=== PATIENT | female | born 1975 | race Caucasian/White ===

== ENCOUNTER → 2016-11-23 | Outpatient (CLI) | payer BC ==
[2016-11-23 11:41] LABS: Basophils % (A) 1 %; CH 31.8; CHCM 33.6; Eosinophils # (A) 0.1 k/uL (0-0.7); Eosinophils % (A) 1 %; HCT 43.7 % (34.0-46.0); HDW 2.57; HGB 14.2 gm/dL (11.4-16.0); Luc # (Auto) 0.13; Luc % (Auto) 2; Lymphocytes # (A) 1.6 k/uL (1.0-4.8); Lymphocytes % (A) 25 %; MCH 30.9 pg (25.0-35.0); MCHC 32.4 g/dL (31.0-37.0); MCV 95.2 fL (80.0-100.0); Monocytes # (A) 0.4 k/uL (0-1.0); Monocytes % (A) 7 %; Neutrophils # (A) 4.3 k/uL (1.3-7.7); Neutrophils % (A) 65 %; RBC 4.59 m/uL (3.80-5.40); WBC 6.6 k/uL (3.8-10.6); WBC (Perox) 6.23
[2016-11-23 11:47] LABS: Anion Gap 8 mmol/L; Blood Urea Nitrogen 11 mg/dL (7-17); Carbon Dioxide 25 mmol/L (22-30); Chloride 106 mmol/L (98-107); Glucose 89 mg/dL (74-99); Non-African American GFR(MDRD) >60 (>60 ml/min/1.73 sqM); Potassium 4.5 mmol/L (3.5-5.1); Sodium 139 mmol/L (137-145)
== END | disposition home or self-care (01) ==
LOC: LABPAT 11:07
PROVIDERS: ATTEND Obstetrics & Gynecology
DX: Z01.812 Encounter for preprocedural laboratory examination (principal); N94.6 Dysmenorrhea, unspecified; N92.1 Excessive and frequent menstruation with irregular cycle
CPT/HCPCS: 36415; 80051; 82565; 82947; 84520; 85025; 86850; 86900; 86901; 87077; 87086; 87186

== ENCOUNTER 2016-12-02 08:18 | Observation (INO) | payer BC ==
[2016-11-27 08:55] VITALS: BMI 27.4
--- NOTE | 2016-11-28 18:01 | HP ---
HISTORY AND PHYSICAL The patient is a 41-year-old 0, para 0, who presented to the office recently having undergone ablation and tubal ligation approximately 3 years ago. She has continued to have at least initially some occasional bleeding which has now become light bleeding lasting for at least 2 weeks of the time and is extraordinarily unpredictable in nature. This presents a significant lifestyle interruption and presents also with significant pain. She is interested in definitive therapy with hysterectomy. Previous examination and examination under anesthetic make the patient a candidate only for a Da Chhaya approach rather than vaginal hysterectomy. PAST MEDICAL HISTORY: Significant for asthma, history of endometriosis, infertility, menorrhagia, and vitiligo. SURGICAL HISTORY: Significant for bilateral breast augmentation surgery. She additionally had hysteroscopy with D and C. She has had laparoscopy with chromopertubation and then she additionally most recently in 2013 underwent hysteroscopy with NovaSure endometrial ablation as well as tubal ligation. Lastly, she has also had liposuction. She denies any anesthetic concerns. OBSTETRICAL HISTORY: 0, para 0, having suffered significant issues with infertility during her reproductive years. Method of contraception currently is tubal ligation. GYNECOLOGIC HISTORY: Unremarkable with the exception of as noted in the history of present illness. There is no history of any infections to include STDs. FAMILY HISTORY: Noncontributory. SOCIAL HISTORY: The patient is and is a nonsmoker but does have remote history of smoking. She reports occasional alcohol and no other significant social concerns. CURRENT MEDICATIONS: Albuterol metered-dose inhaler as needed, Lexapro daily, multivitamin daily, omeprazole daily, and ibuprofen p.r.n. ALLERGIES: PENICILLIN causes nausea. REVIEW OF SYSTEMS: Review of systems as confined to history of present illness. PHYSICAL EXAMINATION: In general, this is a well-developed, well-nourished white female in no acute distress. Her heart has a regular rhythm and rate without murmur. Her lungs are clear to auscultation bilaterally in all pierre. Her abdomen is nondistended, has normoactive bowel sounds, soft, nontender, and without any palpable masses, hepatosplenomegaly, or hernias. Her extremities are without any cyanosis, clubbing, or edema and are nontender to palpation bilaterally. Pelvic examination demonstrates normal external genitalia and BUS with normal vaginal mucosa and cervix. There is no cervical motion tenderness. Uterus is approximately 4-5 weeks in size, mid plane, mobile, nontender, normal in shape. The adnexa are normal and nontender without mass bilaterally. ASSESSMENT AND PLAN: Menometrorrhagia and dysmenorrhea: Her symptoms are significantly disruptive of her lifestyle and work schedule, and she has failed endometrial ablation. She has requested definitive therapy with hysterectomy and her examinations have demonstrated she is a good candidate for Da Chhaya approach. She therefore has been scheduled for Da Chhaya robotically assisted laparoscopic hysterectomy with bilateral salpingectomy and diagnostic cystoscopy. The risks and complications of the procedure have been thoroughly discussed including the risk for bleeding, bleeding requiring transfusion, infection, and injury to local structures. This specifically includes risks to the bowel, bladder, and ureters. We then went on to discuss injuries that are unique to Da Chhaya surgery to include specifically thermal injury and vaginal cuff dehiscence. She has understood all this and understood and agreed to proceed. We are scheduled for the above procedures on the morning of December 02, 2016 for the diagnoses as outlined above. MMODL / IJN: [id number] /
[~2016-12-02 08:18] MED LIST: DEXAMETHASONE SOD PHOSPHATE 10 MG/ML 1 ML VIAL IV ONE; HYDROmorphone 0.5 MG/0.5 ML SYRINGE IVP PRN; MIDAZOLAM 2 MG/2 ML VIAL IV PRN; ONDANSETRON 4 MG/2 ML VIAL IVP ONE; SCOPOLAMINE 1.5MG/72HR PATCH TRANSDERM ONE; ceFAZolin 2 GM in SODIUM CHLORIDE 0.9% 100 ML IVPB ONE
[2016-12-02] MEDS: LACTATED RINGERS 1,000 ML IV SCH ×3 (09:11→22:46)
[2016-12-02] MEDS ORDERED: LIDOCAINE 1% 20 ML VIAL (10MG/ML) FOR IV START INTRADERMA ONE (09:13)
[2016-12-02] MEDS ORDERED: Acetaminophen-Codeine 300-30mg TAB PO PRN ×2 (09:45)
[2016-12-02] MEDS ORDERED: METOCLOPRAMIDE 5 MG/ML 2 ML VIAL IVP PRN (09:45)
[2016-12-02] MEDS ORDERED: diphenhydrAMINE 50 MG/ML 1 ML VIAL IVP PRN (09:45)
[2016-12-02] MEDS ORDERED: SIMETHICONE 80 MG CHEWABLE PO PRN (09:45)
[2016-12-02] MEDS ORDERED: PROPOFOL 10 MG/ML 20 ML VIAL IV ONE (09:47)
[2016-12-02] MEDS ORDERED: NEOSTIGMINE 1 MG/ML 10 ML VIAL ONE (09:47)
[2016-12-02] MEDS ORDERED: ROCURONIUM BROMIDE 10 MG/ML 10 ML VIAL IV ONE (09:47)
[2016-12-02] MEDS ORDERED: LIDOCAINE 1% INJ 10MG/ML (20 ML MDV) ONE (09:47)
[2016-12-02] MEDS ORDERED: MIDAZOLAM 2 MG/2 ML VIAL ONE (09:47)
[2016-12-02] MEDS ORDERED: KETOROLAC 30 MG/ML 1 ML VIAL ONE (09:47)
[2016-12-02] MEDS ORDERED: fentaNYL (PF) 50 MCG/ML 2 ML AMP ONE (09:47)
[2016-12-02] MEDS ORDERED: GLYCOPYRROLATE 0.2 MG/ML 2 ML VIAL ONE (09:47)
[2016-12-02] MEDS ORDERED: ACETAMINOPHEN IV (For NPO) 1,000 MG/100 ML VIAL ONE (09:47)
[2016-12-02] MEDS ORDERED: BUPIVACAINE (PF) 0.5% 30 ML VIAL SQ ONE (10:14)
--- NOTE | 2016-12-02 11:37 | P.OP ---
Date of Procedure: 12/02/16 Preoperative Diagnosis: #1. Menometrorrhagia #2. Severe dysmenorrhea Postoperative Diagnosis: Same Procedure(s) Performed: #1. Da Chhaya robotically assisted laparoscopic hysterectomy with bilateral salpingectomy Anesthesia: MARIXA Surgeon: Stephane Marquis Coupon Clerk #1: Kinza Montes Estimated Blood Loss (ml): 25 IV fluids (ml): 600 Urine output (ml): 300 Pathology: other (Uterus and bilateral fallopian tubes including Filshie clips) Condition: stable Disposition: PACU Operative Findings: Preoperative the patient was found to have a roughly 4-5 week uterus with normal adnexa bilaterally. Intraoperatively, the uterus sounded to 8-9 cm prompting use of an 8 mm uterine manipulator. A 3 cm Eloise cup was selected. Intra-abdominally, the uterus was essentially normal to inspection with some filmy adhesions involving the sigmoid colon and the left adnexal region which were taken down intraoperatively. There was a small posterior fundal fibroid present. There was evidence of bilateral tubal occlusion with Filshie clips, both of which were seen and removed with the specimen. Following the procedure , the bilateral ureteral helix were noted to be functional with urine seen coursing from them. The dome of the bladder appeared to be intact from those the hysteroscopic and laparoscopic perspective. Description of Procedure: The patient was prepped and draped in usual fashion after general endotracheal anesthesia was administered by the anesthesiologist. A weighted speculum was placed and the cervix grasped with a single-tooth tenaculum. Uterus was sounded to approximately 9 cm along selection of an 8 mm uterine manipulator. The cervix was measured and a 3 cm Eloise cup selected. Cervical stay sutures were placed from 8:00 to 10:00 and 2:00 to 4:00 on the cervix at the cervicovaginal junction and then placed through the Eloise cup. The remainder the manipulator was then seated onto the cervix properly and the stay sutures firmly tied down. A George catheter was placed in the remainder the instrumentation removed from the vagina. Attention was turned to the abdomen where a site was selected approximately 2 cm above the umbilicus in the midline where an 8 mm incision was made in the transverse plane allowing insertion of a 5 mm optical trocar under direct vision station without difficulty. A site was inspected in the left lower quadrant approximately 5 cm below and 10-12 cm lateral to the optical trocar where an 8 mm incision was made in the transverse plane allowing insertion of an 8 mm da Chhaya trocar under direct visualization without difficulty. The 2 sites were then bisected and a roughly 10 cm incision made approximately 2-3 cm above the optical trocar site allowing insertion of a 10 mm trocar under direct visualization. A similar right lower quadrant incision and trocar were placed under direct visualization. The scope was shifted to the lateral trocar in the 5 mm port was removed in favor of an 8 mm da Chhaya optical trocar. The robot was then docked to the patient after placing her in steep Trendelenburg. The left arm was loaded with a male and bipolar cautery forceps while the right arm was loaded with a monopolar cautery scissors. I then presented to the console. The right fallopian tube was elevated and removed along the underlying tissue leaving the ovary in place. This was carried out using the [place] bipolar cautery forceps followed by the monopolar cautery scissors. This was carried through the round ligament and utero-ovarian ligaments at which time the uterine vasculature was skeletonized. Attention was then turned to the left side where a similar operation was carried out. There were some filmy adhesions present from the sigmoid colon to the left portion of the uterus and adnexa which were taken down sharply with the monopolar cautery scissors. The uterine vasculature was ultimately skeletonized on this side. Each set of uterine vasculature was thoroughly cauterized with the [place] bipolar cautery forceps and then cut. The uterus was then elevated anteriorly and the posterior Eloise cup margin identified. The vaginal mucosa was opened sharply with the monopolar cautery scissors and carried around to the uterine vasculature on each side where with it was again cauterized and cut. The vaginal incision was then carried around the entire length of the uterus on the anterior portion and uterus removed into the vagina. The scissors were replaced with a suturing device and the vaginal cuff closed in standard fashion using a stitch of 0 Stratafix. Irrigation of the vaginal cuff and pedicles was carried out and they were examined and found to be hemostatic. Attention was then returned to the patient where the George catheter was removed and the diagnostic cystoscope placed within the bladder. The bladder was filled with sterile water and the bilateral ureteral hallux were examined and both seen peristalsing. The dome of bladder was examined from both sides and found to be intact. All instrumentation was then removed. The robot was undocked and the trochars removed. The George catheter was replaced and this incisions closed with interrupted subcuticular stitches of 4- 0 Vicryl followed by Steri-Strips placed with Mastisol. The incisions were injected with a total of 10 mL of half percent Marcaine without epinephrine equally divided between the incisions. Estimated blood loss for the case was 25 mL or less. There were no complications. All sponge, instrument, and needle counts were correct. The patient tolerated the procedure well and proceeded to the recovery room in stable condition.
[2016-12-02] MEDS ORDERED: ALBUTEROL NEBULIZED 2.5 MG/3 ML INHALATION PRN (14:05)
[2016-12-02] MEDS: traMADol 50 MG TAB PO PRN ×2 (14:08→20:36)
[2016-12-02] MEDS: KETOROLAC 30 MG/ML 1 ML VIAL IVP PRN (16:54)
[2016-12-03] MEDS: KETOROLAC 30 MG/ML 1 ML VIAL IVP PRN ×2 (00:25→07:44)
[2016-12-03 07:07] LABS: Basophils % (A) 0 %; CH 30.6; CHCM 32.6; Eosinophils % (A) 0 %; HCT 36.7 % (34.0-46.0); HDW 2.46; HGB 12.1 gm/dL (11.4-16.0); Luc # (Auto) 0.19; Luc % (Auto) 2; Lymphocytes # (A) 2.1 k/uL (1.0-4.8); Lymphocytes % (A) 22 %; MCH 31.3 pg (25.0-35.0); MCHC 33.1 g/dL (31.0-37.0); MCV 94.5 fL (80.0-100.0); Monocytes # (A) 0.6 k/uL (0-1.0); Monocytes % (A) 6 %; Neutrophils # (A) 6.8 k/uL (1.3-7.7); Neutrophils % (A) 69 %; RBC 3.88 m/uL (3.80-5.40); RDW 12.8 % (11.5-15.5); WBC 9.8 k/uL (3.8-10.6); WBC (Perox) 10.23
[2016-12-03] MEDS: LACTATED RINGERS 1,000 ML IV SCH (07:42)
--- NOTE | 2016-12-03 08:28 | P.DS ---
Providers Date of admission: 12/03/16 00:46 Expected date of discharge: 12/03/16 Attending physician: Stephane Marquis Primary care physician: Lavelle Nguyen - Discharge Diagnosis(es) (1) Dysmenorrhea Current Visit: Yes Status: Acute (2) Menometrorrhagia Current Visit: Yes Status: Acute Hospital Course: The patient is a 41-year-old 0 para 0 who presented to the office with complaints of almost daily bleeding or spotting with significant dysmenorrhea. She carries a history of previous tubal ligation and endometrial ablation approximately 2 years ago. She requested definitive therapy of hysterectomy and was ultimately taken for da Chhaya robotically assisted laparoscopic hysterectomy at which time a bilateral salpingectomy was also performed yesterday and an incompetent fashion. Her postoperative course was unremarkable with vital signs remaining stable and her temperature was afebrile throughout. She was deemed stable for discharge on postoperative day #1 and discharged home to follow-up in the office in 2 weeks and 8 weeks respectively. Discharge instructions included calling for any significantly increased fever , pain, vaginal bleeding, GI or complaints, or anything else that concerned her. She is additionally instructed to have nothing in the vagina for least 8 weeks' time to include intercourse. She was last instructed to do no driving until off of all pain medications or 2 weeks' time, whichever came first. She understood her instructions and agrees to follow up as noted above. Discharge medications included any home medications as well as a prescription for Ultram 50 mg, one to 2 by mouth every 6 hours when necessary pain, #20 dispensed with no refills. Procedures: #1. Da Chhaya robotically assisted laparoscopic hysterectomy with bilateral salpingectomy Patient Condition at Discharge: Stable Plan - Discharge Summary New Discharge Prescriptions: No Action Albuterol Inhaler [Ventolin Inhaler] 2 puff INHALATION RT-Q6H PRN PRN Reason: Shortness Of Breath Omeprazole [PriLOSEC] 20 mg PO AC-BRKFST Sulfamethox-Tmp 800-160Mg [Bactrim DS 800-160 mg] 1 tab PO Q12HR Multivitamins, Thera [Multivitamin (formulary)] 1 tab PO DAILY Escitalopram [Lexapro] 10 mg PO QAM Discharge Medication List Albuterol Inhaler [Ventolin Inhaler] 2 puff INHALATION RT-Q6H PRN 02/17/14 [ History] Escitalopram [Lexapro] 10 mg PO QAM 11/27/16 [History] Multivitamins, Thera [Multivitamin (formulary)] 1 tab PO DAILY 11/27/16 [History ] Omeprazole [PriLOSEC] 20 mg PO AC-BRKFST 11/27/16 [History] Sulfamethox-Tmp 800-160Mg [Bactrim DS 800-160 mg] 1 tab PO Q12HR 11/27/16 [ History] Follow up Appointment(s)/Referral(s): Stephane Marquis MD [STAFF PHYSICIAN] - 2 Weeks Discharge Disposition: HOME SELF-CARE
[2016-12-03 12:19] VITALS: BP 97/65; PULSE 88; RESP 16; TEMP 98.4
[2016-12-03] MEDS: traMADol 50 MG TAB PO PRN (13:13)
== END 2016-12-03 14:03 | disposition home or self-care (01) ==
LOC: OR 08:18 → 6PED 11:44 → OR 12-03 00:46
PROVIDERS: ADMIT Obstetrics & Gynecology; ATTEND Obstetrics & Gynecology
DX: D25.9 Leiomyoma of uterus, unspecified (principal); N80.0 Endometriosis of uterus; N83.8 Other noninflammatory disorders of ovary, fallopian tube and broad ligament; L80 Vitiligo; J45.909 Unspecified asthma, uncomplicated; N97.9 Female infertility, unspecified; N80.9 Endometriosis, unspecified; Z87.891 Personal history of nicotine dependence; N92.0 Excessive and frequent menstruation with regular cycle
CPT/HCPCS: 58571; S2900; 81025; 85025; 86850; 86900; 86901; 88307